=== PATIENT | male | born 1995 | race Two or more races ===

== ENCOUNTER 2023-12-19 11:55 | Emergency (ER) | payer OTHER ==
[~2023-12-19] VITALS: Ht 177.8 cm; Wt 99.8 kg
[2023-12-19] MEDS ORDERED: EC-NAPROSYN500 MG PO (12:16)
[2023-12-19] MEDS ORDERED: DEXAMETHASONE SODIUM PHOSPHATE 4 MG/ML VIAL IM STA (12:57)
[2023-12-19] MEDS ORDERED: KETOROLAC TROMETHAMINE 30 MG VIAL IM STA (12:58)
[2023-12-19] MEDS ORDERED: KETOROLAC TROMETHAMINE 30 MG VIAL ONE (13:17)
[2023-12-19] MEDS ORDERED: DEXAMETHASONE SODIUM PHOSPHATE 4 MG/ML VIAL ONE (13:18)
== END 2023-12-19 13:34 | disposition home or self-care (01) ==
LOC: ER 11:56
DX: M25.552 Pain in left hip (principal); Z88.1 Allergy status to other antibiotic agents

== ENCOUNTER 2024-10-17 15:07 | Emergency (ER) | payer OTHER ==
[~2024-10-17] VITALS: Ht 177.8 cm; Wt 105.2 kg
[~2024-10-17 15:07] MED LIST: EC-NAPROSYN500 MG PO
[2024-10-17] MEDS ORDERED: ORPHENADRINE CITRATE 30 MG/ML AMPUL IM ONE (19:00)
[2024-10-17] MEDS ORDERED: KETOROLAC TROMETHAMINE 60 MG VIAL IM ONE ×2 (19:00→19:04)
[2024-10-17] MEDS ORDERED: DEXAMETHASONE SODIUM PHOSPHATE 4 MG/ML VIAL IM ONE (19:00)
[2024-10-17] MEDS ORDERED: ORPHENADRINE CITRATE 30 MG/ML AMPUL ONE (19:04)
[2024-10-17] MEDS ORDERED: DEXAMETHASONE SODIUM PHOSPHATE 4 MG/ML VIAL ONE (19:05)
[2024-10-17] MEDS ORDERED: DICLOFENAC SODI75 MG PO (21:41)
[2024-10-17] MEDS ORDERED: BACLOFEN10 MG PO (21:41)
== END 2024-10-17 22:12 | disposition home or self-care (01) ==
LOC: ER 15:07
DX: M54.50 Low back pain, unspecified (principal); Z91.013 Allergy to seafood; Z88.8 Allergy status to other drugs, medicaments and biological substances; M51.369 Other intervertebral disc degeneration, lumbar region without mention of lumbar back pain or lower extremity pain